=== PATIENT | male | born 1970 | race Caucasian/White ===

== ENCOUNTER 2017-01-19 23:23 | Inpatient (IN) | payer MEDICAID ==
[~2017-01-19] VITALS: Ht 170.2 cm; Wt 63.6 kg
[2017-01-20 00:39] LABS: BASOPHILS 0.1 % (0-2); EOSINOPHILS 1.3 % (0-7); HEMATOCRIT 37.1 % (42.0-54.0); IMMATURE GRANULOCYTES 0.3 % (0-5); LYMPHOCYTES 13.7 % (15-50); MCH 27.9 pg (26.0-34.0); MCHC 32.3 g/dL (31.0-37.0); MCV 86.3 fL (80.0-100.0); MEAN PLATELET VOLUME 9.3 fL (7.4-10.4); MONOCYTES 9.2 % (2-11); NEUTROPHILS 75.4 % (40-80); PLATELET COUNT 222 10x3/uL (130-400); WBC 11.4 10x3/uL (4.8-10.8)
[2017-01-20 00:56] LABS: ALBUMIN 3.1 g/dL (3.4-5.0); ALKALINE PHOSPHATASE 75 U/L (46-116); ALT (SGPT) 39 U/L (10-68); BILIRUBIN - TOTAL 0.53 mg/dL (0.2-1.3); C-REACTIVE PROTEIN 13.2 mg/dL (0.0-0.9); CALC OSMOLALITY 271 mosm/kg (275-300); CALCIUM 8.3 mg/dL (8.5-10.1); CARBON DIOXIDE 24.1 mmol/L (21.0-32.0); CHLORIDE - SERUM 100 mmol/L (98-107); CREATININE - SERUM 0.9 mg/dL (0.6-1.3); GLUCOSE 122 mg/dL (74-106); POTASSIUM - SERUM 3.8 mmol/L (3.5-5.1); PROTEIN - SERUM 7.1 g/dL (6.4-8.2); SODIUM 134 mmol/L (136-145); UREA NITROGEN 21 mg/dL (7-18); URIC ACID 4.6 mg/dL (2.6-7.2); eGFR NON AFRICAN AMERICAN > 90 mL/min (90-120)
[2017-01-20 01:33] LABS: UDS - AMPHET POSITIVE QUAL (NEGATIVE); UDS - BARB NEGATIVE QUAL (NEGATIVE); UDS - BENZO NEGATIVE QUAL (NEGATIVE); UDS - COCAINE POSITIVE QUAL (NEGATIVE); UDS - OPIATE POSITIVE QUAL (NEGATIVE); UDS - PCP NEGATIVE QUAL (NEGATIVE); UDS - THC POSITIVE QUAL (NEGATIVE)
[2017-01-20 01:35] LABS: ERYTHROCYTE SEDIMENTATION RATE 38 mm/hr (0-15)
--- NOTE | 2017-01-20 01:45 | NUR ---
PT ARRIVED ON UNIT VIA WHEELCHAIR ESCORTED BY ER STAFF. ORIENTED TO ROOM AND CALL LIGHT. POSITIONED IN BED FOR COMFORT.
--- NOTE | 2017-01-20 02:00 | NUR ---
IV FLUIDS AND MONEY ROOM TELLER INITIATED AND PT INSTRUCTED ON USE.
[2017-01-20 02:13] VITALS: BP 148/86; BMI 21.9
--- NOTE | 2017-01-20 02:30 | NUR ---
GAVE PT SANDWICH TRAY, SODA, AND JELLO PER REQUEST, ACCORDING TO DIET ORDERS. WILL CONTINUE TO MONITOR FOR NEEDS.
--- NOTE | 2017-01-20 02:40 | NUR ---
ADMISSION ASSESSMENT AND HISTORY COMPLETE. HOME MEDICATION RECONCILIATION COMPLETE.
--- NOTE | 2017-01-20 07:53 | NUR ---
REC'D LYING IN BED ASLEEP. NO DISTRESS NOTED. WILL CONT TO MONITOR. BED LOW, LOCKED, CALL LIGHT IN REACH.
[2017-01-20 09:03] VITALS: BP 125/69
[2017-01-20 12:11] VITALS: BP 124/69
[2017-01-20 16:15] VITALS: BP 106/66
[2017-01-20 21:07] VITALS: BP 104/54
[2017-01-20 23:49] VITALS: BP 117/59
--- NOTE | 2017-01-21 03:56 | NUR ---
PATIENT RESTING IN BED WITH EYES CLOSED AND NO VISIBLE SIGNS OF DISTRESS. BED IN LOWEST POSITION AND CALL LIGHT WITHIN REACH.
[2017-01-21 03:59] VITALS: BP 92/47
[2017-01-21 05:34] LABS: BASOPHILS 0 % (0-2); EOSINOPHILS 0 % (0-7); HEMATOCRIT 36.4 % (42.0-54.0); HEMOGLOBIN 11.6 g/dL (13.5-17.5); IMMATURE GRANULOCYTES 0.3 % (0-5); LYMPHOCYTES 5.6 % (15-50); MCH 27.8 pg (26.0-34.0); MCHC 31.9 g/dL (31.0-37.0); MCV 87.1 fL (80.0-100.0); MEAN PLATELET VOLUME 10.1 fL (7.4-10.4); MONOCYTES 4.9 % (2-11); NEUTROPHILS 89.2 % (40-80); PLATELET COUNT 232 10x3/uL (130-400); RBC 4.18 10x6/uL (4.20-6.10); RDW 14.1 % (11.5-14.5); WBC 10.5 10x3/uL (4.8-10.8)
[2017-01-21 05:55] LABS: CALC OSMOLALITY 272 mosm/kg (275-300); CALCIUM 8.3 mg/dL (8.5-10.1); CARBON DIOXIDE 26.5 mmol/L (21.0-32.0); CHLORIDE - SERUM 103 mmol/L (98-107); GLUCOSE 174 mg/dL (74-106); SODIUM 134 mmol/L (136-145); UREA NITROGEN 14 mg/dL (7-18); eGFR NON AFRICAN AMERICAN 85 mL/min (90-120)
--- NOTE | 2017-01-21 07:30 | NUR ---
ASSESSMENT PER FLOW SHEET.PT WITHOUT DISTRESS.DENIES NEEDS.COMPLAINS OF STIFFNESS AND SWELLING TO LEFT SHOULDER AND HIP. ALSO COMPLAINS OF SWELLING TO BILATERAL WRIST AND HANDS.MONITOR FOR NEEDS
[2017-01-21 08:02] VITALS: BP 87/44
[2017-01-21 12:20] VITALS: BP 105/52
[2017-01-21 16:21] VITALS: BP 102/58
[2017-01-21 20:00] VITALS: BP 104/52
[2017-01-22 04:00] VITALS: BP 110/60
[2017-01-22 07:23] LABS: BASOPHILS 0 % (0-2); EOSINOPHILS 0 % (0-7); HEMATOCRIT 36.4 % (42.0-54.0); HEMOGLOBIN 11.6 g/dL (13.5-17.5); IMMATURE GRANULOCYTES 0.4 % (0-5); LYMPHOCYTES 6.1 % (15-50); MCH 28.1 pg (26.0-34.0); MCHC 31.9 g/dL (31.0-37.0); MCV 88.1 fL (80.0-100.0); MEAN PLATELET VOLUME 10.8 fL (7.4-10.4); MONOCYTES 4.6 % (2-11); NEUTROPHILS 88.9 % (40-80); PLATELET COUNT 219 10x3/uL (130-400); RBC 4.13 10x6/uL (4.20-6.10); RDW 14.2 % (11.5-14.5)
[2017-01-22 07:31] LABS: WBC 14.2 10x3/uL (4.8-10.8)
[2017-01-22 07:40] LABS: CALCIUM 8.7 mg/dL (8.5-10.1); CARBON DIOXIDE 23.4 mmol/L (21.0-32.0); CHLORIDE - SERUM 106 mmol/L (98-107); POTASSIUM - SERUM 4.6 mmol/L (3.5-5.1); SODIUM 138 mmol/L (136-145); UREA NITROGEN 14 mg/dL (7-18)
[2017-01-22 07:41] LABS: CALC OSMOLALITY 277 mosm/kg (275-300); CREATININE - SERUM 0.7 mg/dL (0.6-1.3); GLUCOSE 123 mg/dL (74-106); eGFR NON AFRICAN AMERICAN > 90 mL/min (90-120)
--- NOTE | 2017-01-22 08:00 | NUR ---
ASSESSMENT PER FLOW SHEET.PT WITHOUT DISTRESS.DENIES NEEDS AT PRESENT.MONITOR FOR CHANGE.
[2017-01-22 08:41] VITALS: BP 99/51
--- NOTE | 2017-01-22 10:23 | NUR ---
Patient Name: YOSELYN SANCHEZ Admission Status: ER Accout number: [id number] Admission Date: 01-20-2017 : 1970 Admission Diagnosis: Attending: EULOGIO CROWELL Current LOS: 2 Anticipated DC Date: Planned Disposition: Home Primary Insurance: MEDICAID [place] PENDING Discharge Planning Comments: CM MET WITH PATIENT TO ASSESS DSICHARGE PLANNING NEEDS. PATIENT LIVES INDEPENDENTLY AT HOME WITH HIS JOSEE, WHO WILL BE THE ONE TO TAKE HIM HOME. HE STATED THAT HIS HOME IS SAFE TO RETURN TOO. HE DENIES ANY DME OR HH SERVICES AND DOES NOT WANT ANY AT DISCHARGE AT THIS TIME. CM WILL CONTINUE TO FOLLOW AND ASSIST WITH DISCHARGE PLANNING NEEDS. PCP: NONE [facility] [address] JOSEE () [phone] Church Business Administrator: Melba Fu * How many steps to enter\exit or inside your home? 0 0 * PCP NONE 0 * Pharmacy [facility] [address] 0 * Preadmission Environment Home with Family 0 * ADLs Independent 0 * Equipment None 0 * List name and contact numbers for known caregivers / representatives who currently or will assist patient after discharge: JOSEE () [phone] * Community resources currently utilized None 0 * Additional services required to return to the preadmission environment? No 0 * Can the patient safely return to the preadmission environment? Yes 0 * Has this patient been hospitalized within the prior 30 days at any hospital? No 0 Grand Total: 0
[2017-01-22 11:55] VITALS: BP 112/60
[2017-01-22 12:16] LABS: ANTICHROMATIN ANTIBODIES <0.2 AI (0.0-0.9); DOUBLE-STRANDED DNA ABS <1 IU/mL (0-9); RNP ANTIBODY 0.2 AI (0.0-0.9); SJOGRENS AB SSA <0.2 AI (0.0-0.9); SJOGRENS AB SSB <0.2 AI (0.0-0.9); SMITH ANTIBODY <0.2 AI (0.0-0.9)
--- NOTE | 2017-01-22 13:50 | NUR ---
LYING IN BED,WITHOUT DISTRESS.CALL LIGHT IN REACH
--- NOTE | 2017-01-22 14:05 | NUR ---
VANCOMYCIN TROUGH = 6.8 DRAWN ABOUT AN HOUR LATE. INCREASED DOSING TO 1 GRAM Q8H AND ORDERED TROUGH FOR TOMORROW.
[2017-01-22 15:34] VITALS: BP 112/65
--- NOTE | 2017-01-22 17:33 | NUR ---
REMAINS WITHOUT NEEDS,WITHOUT CHANGE.CONT PLAN OF CARE
[2017-01-22 20:00] VITALS: BP 111/64
--- NOTE | 2017-01-22 20:00 | NUR ---
ASSESSMENT PER FLOWSHEET. IV PATENT RT FOREARM OF NS AT 100CC'S/HR SITE CLEAR. INSOLE DOUBLER OF DILAUDID IN USE WITH SETTINGS AT 0.2MG Q10MIN W/4MG Q4H L/O. DR. DAS HERE TO SEE PATIENT.
--- NOTE | 2017-01-22 21:30 | NUR ---
MEDS GIVEN PER APR. [id number]. 2 UNITS REGULAR INSULIN GIVEN SUBC PER S/S
[2017-01-23] VITALS: BP 122/68
--- NOTE | 2017-01-23 | NUR ---
EYES CLOSED RESPIRATIONS WITH EASE AND UNLABORED.
--- NOTE | 2017-01-23 03:00 | NUR ---
EYES CLOSED RESPIRATIONS WITH EASE AND UNLABORED.
[2017-01-23 04:00] VITALS: BP 121/82
--- NOTE | 2017-01-23 05:30 | NUR ---
MEDS GIVEN PER MAR. [id number]. NO COVERAGE NEEDED.
[2017-01-23 06:08] LABS: BASOPHILS 0 % (0-2); EOSINOPHILS 0 % (0-7); HEMATOCRIT 39.7 % (42.0-54.0); HEMOGLOBIN 12.7 g/dL (13.5-17.5); IMMATURE GRANULOCYTES 0.4 % (0-5); LYMPHOCYTES 9.5 % (15-50); MCH 28.3 pg (26.0-34.0); MCV 88.6 fL (80.0-100.0); MEAN PLATELET VOLUME 9.9 fL (7.4-10.4); MONOCYTES 5.1 % (2-11); RBC 4.48 10x6/uL (4.20-6.10); RDW 14.5 % (11.5-14.5); WBC 11.3 10x3/uL (4.8-10.8)
[2017-01-23 06:24] LABS: PLATELET COUNT 272 10x3/uL (130-400)
[2017-01-23 06:44] LABS: CALC OSMOLALITY 279 mosm/kg (275-300); CALCIUM 8.7 mg/dL (8.5-10.1); CARBON DIOXIDE 24.8 mmol/L (21.0-32.0); CHLORIDE - SERUM 104 mmol/L (98-107); CREATININE - SERUM 0.7 mg/dL (0.6-1.3); GLUCOSE 113 mg/dL (74-106); POTASSIUM - SERUM 4.3 mmol/L (3.5-5.1); SODIUM 139 mmol/L (136-145); UREA NITROGEN 15 mg/dL (7-18); eGFR NON AFRICAN AMERICAN > 90 mL/min (90-120)
[2017-01-23 09:31] VITALS: BP 134/64
[2017-01-23 11:33] VITALS: BP 100/44
--- NOTE | 2017-01-23 11:36 | NUR ---
BS AT THIS TIME WAS 142. NO COVERAGE NEEDED.
--- NOTE | 2017-01-23 15:50 | NUR ---
TROUGH THIS AFTER NOON WAS 24.4, BUT DOSE WAS INFUSING WHEN TROUGH WAS BEING DRAWN. WILL REATTEMPT TO GET A TROUGH PRIOR TO 2000 DOSE TONIGHT.
[2017-01-23 16:34] VITALS: BP 101/56
--- NOTE | 2017-01-23 17:53 | NUR ---
BS 147. NO COVERAGE NEEDED.
[2017-01-23 20:00] VITALS: BP 132/89
--- NOTE | 2017-01-23 20:00 | NUR ---
ASSESSMENT PER FLOWSHEET. IV PATENT RT FOREARM OF NS AT 100CC'S/HR CUSTOMER FACILITIES SUPERVISOR OF DILAUDID IN USE WITH SETTINGS AT 0.2MG Q10MIN W/4MG Q4H L/O. AT BEDSIDE SR UP X2 CALL LIGHT WITHIN REACH.
--- NOTE | 2017-01-23 21:00 | NUR ---
MEDS GIVEN PER MAR. [id number]. NO COVERAGE NEEDED.
[2017-01-23 22:08] VITALS: Ht 170.2 cm; Wt 63.6 kg
[2017-01-24] VITALS: BP 128/88
--- NOTE | 2017-01-24 | NUR ---
EYES CLOSED RESPIRATIONS WITH EASE AND UNLABORED.
--- NOTE | 2017-01-24 03:00 | NUR ---
RESTING QUIETLY AT BEDSIDE. DENIES NEEDS.
[2017-01-24 04:00] VITALS: BP 130/89
[2017-01-24 06:09] LABS: BASOPHILS 0 % (0-2); EOSINOPHILS 0 % (0-7); HEMATOCRIT 41.5 % (42.0-54.0); HEMOGLOBIN 13.5 g/dL (13.5-17.5); IMMATURE GRANULOCYTES 0.6 % (0-5); LYMPHOCYTES 12.1 % (15-50); MCH 28.4 pg (26.0-34.0); MCHC 32.5 g/dL (31.0-37.0); MCV 87.2 fL (80.0-100.0); MEAN PLATELET VOLUME 10.2 fL (7.4-10.4); MONOCYTES 5.5 % (2-11); NEUTROPHILS 81.8 % (40-80); PLATELET COUNT 302 10x3/uL (130-400); RBC 4.76 10x6/uL (4.20-6.10); RDW 14.4 % (11.5-14.5); WBC 10.4 10x3/uL (4.8-10.8)
[2017-01-24 06:34] LABS: CALC OSMOLALITY 281 mosm/kg (275-300); CALCIUM 8.6 mg/dL (8.5-10.1); CHLORIDE - SERUM 105 mmol/L (98-107); CREATININE - SERUM 0.8 mg/dL (0.6-1.3); GLUCOSE 114 mg/dL (74-106); POTASSIUM - SERUM 4.3 mmol/L (3.5-5.1); SODIUM 140 mmol/L (136-145); eGFR NON AFRICAN AMERICAN > 90 mL/min (90-120)
[2017-01-24 06:37] LABS: UREA NITROGEN 19 mg/dL (7-18)
[2017-01-24 07:58] VITALS: BP 101/70
[2017-01-24 12:11] VITALS: BP 103/60
[2017-01-24] MEDS ORDERED: CLEOCIN HCL150 MG PO (13:49)
[2017-01-24] MEDS ORDERED: PREDNISONE20 MG PO (13:51)
[2017-01-24 15:42] VITALS: BP 101/60
--- NOTE | 2017-01-24 15:45 | NUR ---
IV D/C WITH CATH TIP INTACT AND STALLION MANAGER D/C DUE TO PT BEING DISCHARGED.
== END 2017-01-24 17:15 | disposition home or self-care (01) | DRG 558 ==
LOC: D.ER 23:23 → D.MS 01-20 00:24 → D.SDCHOLD 01-21 15:21 → D.MS 01-21 15:32
PROVIDERS: Emergency Medicine; ADMIT Family Medicine
DX: M60.08 Infective myositis, other site (principal); M19.032 Primary osteoarthritis, left wrist; F19.10 Other psychoactive substance abuse, uncomplicated